=== PATIENT | male | born 1975 | race Caucasian/White ===

== ENCOUNTER 2017-09-18 18:43 | Emergency (ER) | payer BC ==
[~2017-09-18] VITALS: Ht 177.8 cm; Wt 157.0 kg
[~2017-09-18 18:43] MED LIST: HYDR-2768 PO; PERC5TAB12 PO; VENTAER INH; ZITHTAB PO
[2017-09-18 19:04] VITALS: BP 171/102; PULSE 90; RESP 18; TEMP 98.6; O2SAT 97
[2017-09-18] MEDS ORDERED: SODIUM CHLOR 0.9% 1000 ML INJ 1,000 ML IV SCH (19:54)
[2017-09-18] MEDS ORDERED: ONDANSETRON HCL 4 MG/2 ML VIAL IVP ONE (20:00)
[2017-09-18] MEDS ORDERED: MORPHINE SULFATE 4 MG/ML INJ IV PUSH ONE (20:00)
[2017-09-18] MEDS ORDERED: SODIUM CHLORIDE 0.9% FLUSH 10 ML FLUSH IV FLUSH PRN (20:00)
--- NOTE | 2017-09-18 20:01 | PD ---
HPI . Abdominal pain Chief Complaint: Abdominal Pain Time Seen by Provider: 19:48 Travel History International Travel<30 days: No Contact w/Intl Traveler<30days: No Traveled to known affect area: No History of Present Illness HPI Patient presents with chief complaint of left-sided abdominal pain. Onset was at 2:30 PM. He reports associated nausea but no vomiting or diarrhea. He denies any urinary tract symptoms such as dysuria, frequency or urgency. He denies any fever. He has not noticed any modifying factors. He rates the pain 10/10. PFSH Past Medical History Diminished Hearing: No Hypertension: Yes Respiratory: Yes (CPAP) Immunizations Current: Yes Past Surgical History Tonsillectomy: Yes Social History Alcohol Use: Yes (OCCASIONALLY) Tobacco Use: No Substance Use: No Allergies-Medications (Allergen,Severity, Reaction): Coded Allergies: No Known Allergies (Verified Adverse Reaction, Unknown, 09/18/17) Reported Meds & Prescriptions Reported Meds & Active Scripts Active Reported Escitalopram (Escitalopram Oxalate) 5 Mg Tab 5 Mg PO DAILY Claritin-D 24 HR (Loratadine-Pseudoephedrine 24 HR) 10-240 Mg Tab 1 Tab PO DAILY Omeprazole 20 Mg Tab 20 Mg PO DAILY Losartan-Hydrochlorothiazide 50-12.5 Mg Tab 0.5 Tab PO DAILY Review of Systems Except as stated in HPI: all other systems reviewed are Neg General / Constitutional: No: Fever, Chills Gastrointestinal: Positive: Nausea, Abdominal Pain, No: Vomiting, Diarrhea Genitourinary: No: Urgency, Frequency, Dysuria Physical Exam Narrative GENERAL: Awake and alert and in no distress. He ambulates today with no apparent pain. SKIN: warm/dry. Normal color and turgor. HEAD: Normocephalic. Atraumatic. EYES: Pupils equal and round. No scleral icterus. No injection or drainage. ENT: No nasal bleeding or discharge. Mucous membranes pink and moist. NECK: Trachea midline. Full range of motion without pain.. CARDIOVASCULAR: Regular rate and rhythm. Heart sounds normal. RESPIRATORY: No accessory muscle use. Clear to auscultation. Breath sounds equal bilaterally. GASTROINTESTINAL: Abdomen soft. Nontender. Bowel sounds present. Nondistended. Obese. : No CVA tenderness. MUSCULOSKELETAL: No obvious deformities. NEUROLOGICAL: Awake and alert. No obvious cranial nerve deficits. Motor grossly within normal limits. Normal speech. PSYCHIATRIC: Appropriate mood and affect; insight and judgment normal. Data Data Last Documented VS Vital Signs Date Time Temp Pulse Resp B/P (MAP) Pulse Ox O2 Delivery O2 Flow Rate FiO2 09/18/17 21:08 88 16 102/66 (78) 98 Room Air 09/18/17 19:04 98.6 Orders Orders Complete Blood Count With Diff (09/18/17 19:54) Comprehensive Metabolic Panel (09/18/17 19:54) Urinalysis - C+S If Indicated (09/18/17 19:54) Ct Abd/Pel W Iv Contrast(Rout) (09/18/17 19:54) Iv Access Insert/Monitor (09/18/17 19:54) Ecg Monitoring (09/18/17 19:54) Oximetry (09/18/17 19:54) Morphine Inj (Morphine Inj) (09/18/17 20:00) Ondansetron Inj (Zofran Inj) (09/18/17 20:00) Sodium Chlor 0.9% 1000 Ml Inj (Ns 1000 M (09/18/17 19:54) Sodium Chloride 0.9% Flush (Ns Flush) (09/18/17 20:00) Iohexol 350 Inj (Omnipaque 350 Inj) (09/18/17 21:15) Labs Laboratory Tests Test 09/18/17 20:15 09/18/17 20:25 Urine Color YELLOW Urine Turbidity SLIGHT Urine pH 7.0 Urine Specific [place] 1.025 Urine Protein TRACE mg/dL Urine Glucose (UA) NEG mg/dL Urine Ketones TRACE mg/dL Urine Occult Blood LARGE Urine Nitrite NEG Urine Bilirubin NEG Urine Leukocyte Esterase NEG Urine RBC 25-49 /hpf Urine WBC 3-5 /hpf Urine Squamous Epithelial Cells 0-5 /hpf Urine Mucus FEW /lpf Microscopic Urinalysis Comment CULT NOT INDICATED White Blood Count 12.9 TH/MM3 Red Blood Count 5.30 MIL/MM3 Hemoglobin 15.3 GM/DL Hematocrit 46.4 % Mean Corpuscular Volume 87.5 FL Mean Corpuscular Hemoglobin 28.9 PG Mean Corpuscular Hemoglobin Concent 33.0 % Red Cell Distribution Width 13.1 % Platelet Count 357 TH/MM3 Mean Platelet Volume 7.1 FL Neutrophils (%) (Auto) 81.5 % Lymphocytes (%) (Auto) 9.1 % Monocytes (%) (Auto) 4.7 % Eosinophils (%) (Auto) 0.4 % Basophils (%) (Auto) 4.3 % Neutrophils # (Auto) 10.4 TH/MM3 Lymphocytes # (Auto) 1.2 TH/MM3 Monocytes # (Auto) 0.6 TH/MM3 Eosinophils # (Auto) 0.1 TH/MM3 Basophils # (Auto) 0.6 TH/MM3 CBC Comment AUTO DIFF Differential Total Cells Counted 100 Neutrophils % (Manual) 87 % Band Neutrophils % 1 % Lymphocytes % 7 % Monocytes % 4 % Neutrophils # (Manual) 11.5 TH/MM3 Metamyelocytes 1 % Differential Comment FINAL DIFF MANUAL Platelet Estimate NORMAL Platelet Morphology Comment NORMAL Red Cell Morphology Comment NORMAL Blood Urea Nitrogen 16 MG/DL Creatinine 1.50 MG/DL Random Glucose 177 MG/DL Total Protein 7.3 GM/DL Albumin 3.7 GM/DL Calcium Level 8.9 MG/DL Alkaline Phosphatase 83 U/L Aspartate Amino Transf (AST/SGOT) 26 U/L Alanine Aminotransferase (ALT/SGPT) 40 U/L Total Bilirubin 0.4 MG/DL Sodium Level 139 MEQ/L Potassium Level 4.2 MEQ/L Chloride Level 105 MEQ/L Carbon Dioxide Level 28.3 MEQ/L Anion Gap 6 MEQ/L Estimat Glomerular Filtration Rate 51 ML/MIN [facility] Medical Decision Making Medical Screen Exam Complete: Yes Emergency Medical Condition: Yes Differential Diagnosis Differential diagnosis of abdominal pain includes but is not limited to gastritis, pancreatitis, hepatitis, gastroenteritis, constipation, urinary retention, peptic ulcer disease, diverticulitis or appendicitis Narrative Course This patient presents with left lower quadrant abdominal pain. His pain will be treated with IV morphine. Evaluation is in process to rule out diverticulitis, pyelonephritis, nephrolithiasis. CBC & BMP Diagram 09/18/17 20:25 Total Protein 7.3, Albumin 3.7, Calcium Level 8.9, Alkaline Phosphatase 83, Aspartate Amino Transf (AST/SGOT) 26, Alanine Aminotransferase (ALT/SGPT) 40, Total Bilirubin 0.4 UA>>blood CT: 1. Acute obstructive uropathy of the left distal ureter secondary to 7 mm calcified obstructing calculus resulting in mild ureteral pelvocaliectasis on the left. 2. Enlarged fatty liver. 3. Bilateral pars defects at L5. Patient reports good pain control. He will be discharged home with prescriptions for Percocet, Phenergan and Flomax. He will be given a referral to urology. Diagnosis Primary Impression: Left flank pain Additional Impression: Kidney stone Referrals: Tremayne Aguilar MD Patient Instructions: General Instructions, Kidney Stones (DC), Narcotic given in the ED Med/Other Pt SpecificInfo: Prescription(s) given Scripts Tamsulosin (Flomax) 0.4 Mg Cap 0.4 MG PO HS for Manage Prostate Problems, #30 CAP 0 Refills Prov: Heide Chan MD 09/18/17 Promethazine (Phenergan) 25 Mg Tablet 25 MG PO Q6H Y for NAUSEA OR VOMITING, #12 TAB 0 Refills Prov: Heide Chan MD 09/18/17 Oxycodone-Acetaminophen (Percocet) 5-325 mg Tab 1 TAB PO Q4H Y for PAIN, #12 TAB 0 Refills Prov: Heide Chan MD 09/18/17 Disposition: 01 DISCHARGE HOME Condition: Stable Heide Chan MD Sep 18, 2017 20:01
[2017-09-18 20:47] LABS: BILIRUBIN, URINE NEG (NEG); BLOOD, URINE LARGE (NEG); GLUCOSE,URINE NEG (NEG); KETONE, URINE TRACE mg/dL (NEG); NITRITE,URINE NEG (NEG); URINE LEUKOCYTE ESTERASE NEG (NEG)
[2017-09-18 20:49] LABS: AUTOMATED NEUTROPHIL # 10.4 TH/MM3 (1.8-7.7); BASOPHIL # 0.6 TH/MM3 (0-0.2); BASOPHIL % 4.3 % (0.0-2.0); EOSINOPHIL # 0.1 TH/MM3 (0-0.4); EOSINOPHIL % 0.4 % (0.0-4.0); HEMATOCRIT 46.4 % (39.0-51.0); HEMOGLOBIN 15.3 GM/DL (13.0-17.0); LYMPH % 9.1 % (9.0-44.0); LYMPHOCYTE # 1.2 TH/MM3 (1.0-4.8); MEAN CELL VOLUME 87.5 FL (80.0-100.0); MEAN CORPUSCULAR HEMOGLOBIN 28.9 PG (27.0-34.0); MEAN PLATELET VOLUME 7.1 FL (7.0-11.0); MONO % 4.7 % (0.0-8.0); MONOCYTE # 0.6 TH/MM3 (0-0.9); NEUT % 81.5 % (16.0-70.0); PLATELET COUNT 357 TH/MM3 (150-450); RED CELL DISTRIBUTION WIDTH 13.1 % (11.6-17.2); WHITE BLOOD COUNT 12.9 TH/MM3 (4.0-11.0)
[2017-09-18 20:57] LABS: URINE COLOR YELLOW (YELLW/STRAW)
[2017-09-18 20:58] LABS: MUCUS URINE FEW /lpf (OCC); SQUAMOUS EPITHELIAL CELL URINE 0-5 /hpf (0-5)
[2017-09-18 20:58] LABS: CHLORIDE 105 MEQ/L (98-107); SODIUM (NA) 139 MEQ/L (136-145)
[2017-09-18 21:01] LABS: CALCIUM 8.9 MG/DL (8.5-10.1)
[2017-09-18 21:02] LABS: ALBUMIN 3.7 GM/DL (3.4-5.0); BICARBONATE 28.3 MEQ/L (21.0-32.0); BLOOD UREA NITROGEN 16 MG/DL (7-18); GLUCOSE,RANDOM 177 MG/DL (74-106)
[2017-09-18 21:05] LABS: ALT (GPT) 40 U/L (12-78); AST (GOT) 26 U/L (15-37); GLOMERULAR FILTRATION RATE 51 ML/MIN (>89)
[2017-09-18 21:06] LABS: TOTAL BILIRUBIN ADULT 0.4 MG/DL (0.2-1.0)
[2017-09-18 21:07] LABS: TOTAL PROTEIN 7.3 GM/DL (6.4-8.2)
[2017-09-18] MEDS ORDERED: OMEP20TA93 PO (21:07)
[2017-09-18] MEDS ORDERED: LOSA50TA2 PO (21:07)
[2017-09-18] MEDS ORDERED: LORA-400 PO (21:07)
[2017-09-18] MEDS ORDERED: ESCI5TAB PO (21:07)
[2017-09-18 21:08] VITALS: BP 102/66; PULSE 88; RESP 16; O2SAT 97; O2SAT 98
[2017-09-18 21:08] LABS: ALKALINE PHOSPHATASE 83 U/L (45-117)
[2017-09-18] MEDS ORDERED: IOHEXOL 350 MG/ML 10 ML VIAL (for RAD DIAG) IVCONTRAST ONE (21:15)
[2017-09-18 21:22] LABS: BANDS 1 % (0-6); LYMPHOCYTES 7 % (9-44); METAMYELOCYTES 1 % (0-1); MONOCYTES 4 % (0-8); NEUTROPHIL # MANUAL DIFF 11.5 TH/MM3 (1.8-7.7); POLYS (SEG NEUTROPHILS) 87 % (16-70)
--- NOTE | 2017-09-18 21:41 | RADRPT ---
EXAM DATE/TIME: 09/18/2017 21:13 [place] COMPARISON: CT ABDOMEN & PELVIS W CONTRAST, January 04, 2015, 15:22. INDICATIONS : Left abdominal pain and nausea. IV CONTRAST: 96 cc Omnipaque 350 (iohexol) IV ORAL CONTRAST: No oral contrast ingested. RADIATION DOSE: 26.87 CTDIvol (mGy) ; Patient body habitus MEDICAL HISTORY : Hypertension. SURGICAL HISTORY : None. ENCOUNTER: Initial ACUITY: 1 day PAIN SCALE: 10/10 LOCATION: Left abdomen TECHNIQUE: Volumetric scanning of the abdomen and pelvis was performed. Using automated exposure control and ad justment of the mA and/or kV according to patient size, radiation dose was kept as low as reasonably achievable to obtain optimal diagnostic quality images. DICOM format image data is available electro nically for review and comparison. FINDINGS: LOWER LUNGS: The visualized lower lungs are clear. LIVER: The liver is enlarged and demonstrates fatty infiltration. No focal mass is noted. There is no dilat ion of the biliary tree. No calcified gallstones. SPLEEN: Normal size without lesion. PANCREAS: Within normal limits. KIDNEYS: There is acute obstructive uropathy of the left ureter secondary to a 7 mm calcified calculus resulti ng in mild ureteral pelvocaliectasis. Mild perinephric streaking this is noted on the left. The right kidney is unremarkable. No renal mass is noted. ADRENAL GLANDS: Within normal limits. VASCULAR: There is a circumaortic left renal vein. BOWEL/MESENTERY: The stomach, small bowel, and colon demonstrate no acute abnormality. There is no free intraperitone al air or fluid. ABDOMINAL WALL: Within normal limits. RETROPERITONEUM: There is no lymphadenopathy. BLADDER: No wall thickening or mass. REPRODUCTIVE: Within normal limits. INGUINAL: There is no lymphadenopathy or hernia. MUSCULOSKELETAL: Stable pars defects at L5 are noted. CONCLUSION: 1. Acute obstructive uropathy of the left distal ureter secondary to 7 mm calcified obstructing calcu trvais resulting in mild ureteral pelvocaliectasis on the left. 2. Enlarged fatty liver. 3. Bilateral pars defects at L5. Stan Cooper MD on September 18, 2017 at 21:32 Board Certified Radiologist. This report was verified electronically.
[2017-09-18] MEDS ORDERED: PERC5TAB12 PO (21:52)
[2017-09-18] MEDS ORDERED: TAMS5CAP PO (21:52)
[2017-09-18] MEDS ORDERED: PROM25TA10 PO (21:52)
[2017-09-18 22:34] VITALS: BP 153/83; PULSE 102; RESP 18; TEMP 98.1; O2SAT 96
== END 2017-09-18 22:37 | disposition home or self-care (01) ==
LOC: PHED 18:43
DX: N20.2 Calculus of kidney with calculus of ureter (principal); K76.0 Fatty (change of) liver, not elsewhere classified; I10 Essential (primary) hypertension
CPT/HCPCS: 74177; 80053; 81001; 85007; 85027; 96361; 96374; 96375; 99284; J2270; J2405; J7030; Q9967